=== PATIENT | female | born 1995 | race Two or more races ===

== ENCOUNTER → 2019-07-24 | Outpatient (CLI) | payer OTHER ==
[2019-07-24 10:29] LABS: ESTRADIOL 34.2 PG/ML; PROGESTERONE 36.22 NG/ML
== END ==
LOC: M LAB 09:18
PROVIDERS: ATTEND Obstetrics & Gynecology Reproductive Endocrinology
DX: E28.9 Ovarian dysfunction, unspecified (principal)

== ENCOUNTER → 2019-07-31 | Outpatient (CLI) | payer OTHER ==
[2019-07-31 09:05] LABS: HCG, SERUM QUALITATIVE NEGATIVE (NEGATIVE)
[2019-07-31 09:14] LABS: PROGESTERONE 7.26 NG/ML
== END ==
LOC: M LAB 07:30
PROVIDERS: ATTEND Obstetrics & Gynecology Reproductive Endocrinology
DX: E28.9 Ovarian dysfunction, unspecified (principal)

== ENCOUNTER 2019-08-22 12:28 | Emergency (ER) | payer OTHER ==
[~2019-08-22] VITALS: Ht 157.5 cm; Wt 60.9 kg
[2019-08-22] MEDS ORDERED: MULTTAB20 PO (12:57)
[2019-08-22] MEDS ORDERED: CYCLOBENZAPRINE 5MG TABLET PO ONE (14:00)
[2019-08-22] MEDS ORDERED: LIDOCAINE 5% (LIDODERM) PATCH TD ONE (14:00)
[2019-08-22] MEDS ORDERED: KETOROLAC 30 MG/ML VIAL (J1885) IM ONE (14:00)
[2019-08-22] MEDS ORDERED: LIDO5DIS41 TOP (14:28)
[2019-08-22] MEDS ORDERED: CYCL5TAB PO (14:28)
[2019-08-22 14:43] VITALS: BP 111/73
[2019-08-22] MEDS ORDERED: **NOTE PATIENT COMMENT** MISC XX SCH (21:00)
== END 2019-08-22 14:46 | disposition home or self-care (01) ==
LOC: M ED 12:28
DX: S39.012A Strain of muscle, fascia and tendon of lower back, initial encounter (principal); X58.XXXA Exposure to other specified factors, initial encounter; Y92.89 Other specified places as the place of occurrence of the external cause; Z91.040 Latex allergy status
CPT/HCPCS: 96372; 99283; J1885